=== PATIENT | female | born 1955 | race Caucasian/White ===

== ENCOUNTER 2018-08-30 10:16 | Observation (INO) ==
[2018-08-30] MEDS ORDERED: SODIUM CHLORIDE 0.9% 1,000 ML IV STA (10:43)
[2018-08-30 10:56] LABS: Basophils % 0.6 % (0.0-0.8); Eosinophils % 0.9 % (0.00-10.9); Hematocrit 37.3 VOL% (35.7-47.0); Hemoglobin 12.8 GM/DL (12.0-16.0); Lymphocytes % 28.8 % (21.3-54.2); Mean Corpuscular HGB Conc 34.3 GM/DL (32-36); Mean Corpuscular Hemoglobin 31 PG (27-34); Mean Corpuscular Volume 89.4 FL (87-102); Mean Platelet Volume 9.1 FL (9.6-12.0); Monocytes # 0.4 10*3/uL (0.11-0.8); Monocytes % 11.8 % (1.7-12.7); Neutrophils % 57.9 % (38.7-73.9); Platelet Count 203 T/CUMM (130-400); Red Blood Count 4.17 MC/CUMM (3.8-5.5); Red Cell Distribution Width 12.7 % (9.3-17.3); White Blood Count 3.4 T/CUMM (4-12)
[2018-08-30 11:09] LABS: PT Patient Result 10.7 SECS; Partial Thromboplastin Time 25.9 SECS (0-40)
[2018-08-30 11:30] LABS: Albumin 3.6 G/DL (3.4-5.0); Bilirubin,Total 0.8 MG/DL (0.2-1.0); Calcium 8.3 MG/DL (8.5-10.1); Potassium 3.3 MMOL/L (3.5-5.1); Thyroid Stimulating Hormone 1.85 uIU/ml (0.358-3.74); Total Protein 6.4 G/DL (6.4-8.3)
[2018-08-30] MEDS ORDERED: ONDANSETRON 4 MG/2 ML VIAL IV PRN (11:57)
[2018-08-30] MEDS ORDERED: ACETAMINOPHEN 325 MG TABLET PO PRN (11:57)
[2018-08-30] MEDS ORDERED: ENOXAPARIN 40 MG/0.4 ML SYRINGE SUBCUT SCH (12:00)
[2018-08-30 12:29] LABS: Barbiturates Screen,Urine Negative (Negative); Benzodiazepines Screen,Urine Negative (Negative); Cannabinoid Screen,Urine Negative (Negative); Opiate Screen,Urine Negative (Negative); Phencyclidine Screen,Urine Negative (Negative)
[2018-08-30] MEDS ORDERED: MAGNESIUM SULF RIDER 4 GM in PREMIX 1 EACH IV PRN (14:28)
[2018-08-30] MEDS ORDERED: MAGNESIUM SULF RIDER 2 GM in PREMIX 1 EACH IV PRN (14:28)
[2018-08-30] MEDS: APIXABAN 5 MG TABLET PO SCH ×2 (15:40→21:43)
[2018-08-30] MEDS: POTASSIUM CHLORIDE 20 MEQ TABLET PO PRN ×3 (15:41→21:43)
[2018-08-30] MEDS ORDERED: CARVEDILOL 6.25 MG TABLET PO SCH (17:00)
[2018-08-30 19:30] LABS: Apearance,Urine CLEAR (Clear); Bilirubin,Urine Negative (Negative); Blood, Urine Negative (Negative); Glucose,Urine (UA) Negative (Negative); Ketones,Urine Negative (Negative); Mucus,Urine Occasional /LPF (Occasional); Nitrite,Urine Negative (Negative); Protein,Urine Negative; RBC,Urine 1 /HPF (0-4); Squamous Epithelial Cell,Urine Occasional /HPF (0-10); Urine Color Yellow (Yellow); Urine Specific Gravity 1.013 (1.001-1.035); Urine Urobilinogen < 2.0 EU/DL (0.2-1.0); WBC,Urine 1 /HPF (0-6)
[2018-08-30] MEDS: CHOLESTYRAMINE 4 GM PACK PO SCH (21:43)
[2018-08-30] MEDS: CARVEDILOL 12.5 MG TABLET PO SCH (21:43)
[2018-08-31 05:06] LABS: Basophils % 0.9 % (0.0-0.8); Eosinophils # 0.1 10*3/uL (0.0-0.87); Eosinophils % 1.5 % (0.00-10.9); Hematocrit 33.3 VOL% (35.7-47.0); Hemoglobin 11.3 GM/DL (12.0-16.0); Immature Granulocytes % 0.3 %; Immature Granulocytes Absolute 0.01 #; Lymphocytes # 1.9 10*3/uL (1.4-4.0); Lymphocytes % 55.8 % (21.3-54.2); Mean Corpuscular HGB Conc 33.9 GM/DL (32-36); Mean Corpuscular Hemoglobin 31 PG (27-34); Mean Corpuscular Volume 90.2 FL (87-102); Mean Platelet Volume 9.2 FL (9.6-12.0); Monocytes # 0.4 10*3/uL (0.11-0.8); Monocytes % 10.8 % (1.7-12.7); Neutrophils # 1.1 10*3/uL (1.4-7.4); Neutrophils % 30.7 % (38.7-73.9); Platelet Count 188 T/CUMM (130-400); Red Blood Count 3.69 MC/CUMM (3.8-5.5); Red Cell Distribution Width 12.7 % (9.3-17.3); White Blood Count 3.4 T/CUMM (4-12)
[2018-08-31 05:24] LABS: Calcium 8.4 MG/DL (8.5-10.1); Potassium 4.3 MMOL/L (3.5-5.1); Risk Ratio 2.05; VLDL CHOLESTEROL 8.2 MG/DL
[2018-08-31 05:38] LABS: Band Neutrophils 3 % (0-10); Eosinophils 2 % (0-10); Lymphocytes 55 % (20-55); Platelet Estimate Normal; Reactive Lymphocytes 2+; Segmented Neutrophils 30 % (50-85); Total Cells Counted 100
[2018-08-31 05:39] LABS: Ovalocytes 1+
[2018-08-31 05:45] LABS: Calcium 8.4 MG/DL (8.5-10.1); Potassium 4.3 MMOL/L (3.5-5.1)
[2018-08-31] MEDS ORDERED: PANTOPRAZOLE 40 MG TABLET PO SCH (09:00)
[2018-08-31] MEDS ORDERED: ASPIRIN EC 81 MG TABLET PO SCH (09:00)
[2018-08-31] MEDS ORDERED: SIMVASTATIN 20 MG TABLET PO SCH (09:00)
[2018-08-31] MEDS: APIXABAN 5 MG TABLET PO SCH (09:10)
[2018-08-31] MEDS: CHOLESTYRAMINE 4 GM PACK PO SCH (09:11)
[2018-08-31] MEDS: CARVEDILOL 12.5 MG TABLET PO SCH (09:11)
[2018-08-31 13:01] VITALS: BP 112/67
== END 2018-08-31 14:09 | disposition home or self-care (01) ==
LOC: EDBD → EDUNIT# → N.ED 10:16 → N.EDINP 11:57 → INTOOBSV 11:57 → N.TELES 12:41 → N.2W 12:42 → N.TELES 15:11
PROVIDERS: ADMIT Hospitalist; ATTEND Hospitalist